=== PATIENT | female | born 1945 | race Asian ===

== ENCOUNTER 2020-04-22 15:55 | Emergency (ER) | payer OTHER ==
[2020-04-22] MEDS ORDERED: ASPIRIN 81 MG CHEWABLE TABLETS PO ONE (15:56)
--- NOTE | 2020-04-22 15:59 | PDOC ---
Rapid Medical Evaluation Time Seen by Provider: 04/22/20 15:56 Medical Evaluation: 04/22/20 15:58 CC: lscp x 1 day, htn hx Exam:elevated bp, other vss, lcta Plan: cardiac w/u Discharge Disposition - Diagnosis Chest pain - Referrals - Patient Instructions - Post Discharge Activity
[2020-04-22 16:08] VITALS: TEMP 98.1; BMI 29.2
--- OUTSIDE RECORDS SUMMARY | 2020-04-22 16:21 | XMS ---
:1945 Author Organization [facility] Support Name Relationship Address Phone RE Unavailable Unavailable Unavailable BILL SON [address] [address] Re-disclosure Warning The records that you are about to access may contain information from federally- assisted alcohol or drug abuse programs. If such information is present, then the following federally mandated warning applies: This information has been disclosed to you from records protected by federal confidentiality rules (42 CFR part 2). The federal rules prohibit you from making any further disclosure of this information unless further disclosure is expressly permitted by the written consent of the person to whom it pertains or as otherwise permitted by 42 CFR part 2. A general authorization for the release of medical or other information is NOT sufficient for this purpose. The Federal rules restrict any use of the information to criminally investigate or prosecute any alcohol or drug abuse patient.The records that you are about to access may contain highly sensitive health information, the redisclosure of which is protected by Article 27-F of the [facility] Public Health law. If you continue you may haveaccess to information: Regarding HIV / AIDS; Provided by facilities licensed or operated by the [facility] Office of Mental Health; or Provided by the [facility] Office for People With Developmental Disabilities. If such information is present, then the following [facility] mandated warning applies: This information has been disclosed to you from confidential records which are protected by state law. State law prohibits you from making any further disclosure of this information without the specific written consent of the person to whom it pertains, or as otherwise permitted by law. Any unauthorized further disclosure in violation of state law may result in a fine or correction sentence or both. A general authorization for the release of medical or other information is NOT sufficient authorization for further disclosure. Insurance Providers Payer name Policy type Policy ID Covered Covered constitution party's Policy P [place] / Coverage constitution party ID relationship to [employer] type [place] MEDICA[place] [id number]
[2020-04-22] MEDS ORDERED: ASPIRIN 81 MG CHEWABLE TABLETS ONE (16:29)
[2020-04-22 17:14] LABS: BASO % 0.9 % (0-2.0); EOS % 2.4 % (0-4.5); HEMATOCRIT 38.9 % (32.4-45.2); HEMOGLOBIN 12.9 GM/dL (10.7-15.3); LYMPH % 31.8 % (8-40); MCH 32.2 pg (25.7-33.7); MCHC 33.1 g/dl (32.0-36.0); MEAN PLT VOLUME 7.9 fl (7.5-11.1); NEUT % 53.9 % (42.8-82.8); PLATELET COUNT 268 K/MM3 (134-434); RBC 4.01 M/mm3 (3.60-5.2); RDW 12.5 % (11.6-15.6); WHITE BLOOD COUNT 6.5 K/mm3 (4.0-10.0)
[2020-04-22 17:24] LABS: INR 0.98 (0.83-1.09); PROTHROMBIN TIME (PATIENT) 11.9 SEC (9.7-13.0)
--- NOTE | 2020-04-22 17:25 | PDOC ---
Documentation entered by Keeley Aranda SCRIBE, acting as scribe for Avelina Muñoz MD. Avelina Muñoz MD: This documentation has been prepared by the scribe, Keeley Aranda SCRIBE, under my direction and personally reviewed by me in its entirety. I confirm that the documentation accurately reflects all work, treatment, procedures, and medical decision making performed by me. Attending Attestation - Resident Resident Name: Emerald Lopez - ED Attending Attestation I have performed the following: I have examined & evaluated the patient, The case was reviewed & discussed with the resident, I agree w/resident's findings & plan, Exceptions are as noted - HPI HPI: 04/22/20 17:19 This 74 yo female has been experiencing muscle cramping for past 3 weeks. It involves her legs, torso and radiates into her jaw She DENIES any fever,chills,nausea,vomiting, bladder or bowel incontinence,extremity weakness 04/22/20 17:47 - Physicial Exam PE: 04/22/20 17:48 Petite Alert 74 yo female with 3 weeks of leg cramping, cramping into neck and jaw and chest 04/22/20 17:53 head ncat eyes femi eomi lungs cta b/l cvs [id number] abdomen nontender extremities no erythema, no deformities, 1+ edema neuro axox3,motor strength 5/5 b/l psych appropriate 04/22/20 18:04 - Medical Decision Making 04/22/20 18:20 she exhibits a tremor in her arms and some circumoral twitching intermittent for several weeks labs reviewed, no metabolic disturbances , no electrolyte abnormalities -discussed neurology referral with the patient and her son plan Neurology referral 04/22/20 18:53 04/22/20 19:01 Discharge - Discharge Information Problems reviewed: Yes Clinical Impression/Diagnosis: Chest pain, Tremor, Leg cramping Condition: Stable Disposition: HOME - Follow up/Referral Referrals: Willy Cárdenas MD [Staff Physician] - Victoriano Aguilera MD [Staff Physician] - Salma Tariq MD [Primary Care Provider] - Cathi Garcia MD [Staff Physician] - - Patient Discharge Instructions Additional Instructions: You were seen in the emergency department due to the symptoms you have been experiencing in your legs, your chest, and your jaw. We ordered lab work for you and did some imaging exams, which all showed no concerning signs. Since you are still experiencing the symptoms, we recommend that you see a neurologist within the next 48 hours - we will refer three neurologists for you: Dr. Garcia, Dr. Aguilera, and Dr. Cárdenas. If you continue to experience worsening of your symptoms, chest pain, shortness of breath, or any other concerning symptoms, please call 911 or refer to your nearest emergency department for immediate medical attention. It was a pleasure taking care of you. Print Language: NORTHERN IRISH - Post Discharge Activity
[2020-04-22 17:26] LABS: ACTIVATED PTT 31.9 SECONDS (25.2-36.5)
[2020-04-22 17:40] LABS: CHLORIDE 107 mmol/L (98-107); POTASSIUM 4.7 mmol/L (3.5-5.1); SODIUM 141 mmol/L (136-145)
[2020-04-22 17:42] LABS: CALCIUM 9.4 mg/dL (8.5-10.1)
[2020-04-22 17:44] LABS: ALBUMIN 4.1 g/dl (3.4-5.0); ANION GAP 6 MMOL/L (8-16); BLOOD UREA NITROGEN 15.5 mg/dL (7-18); CO2 28 mmol/L (21-32); GLUCOSE,RANDOM 108 mg/dL (74-106); MAGNESIUM 2.3 mg/dL (1.8-2.4)
[2020-04-22 17:46] LABS: CREATININE 1.2 mg/dL (0.55-1.3); SGOT/AST 15 U/L (15-37); SGPT/ALT 22 U/L (13-61)
[2020-04-22 17:47] LABS: BILIRUBIN,TOTAL 0.6 mg/dL (0.2-1)
[2020-04-22 17:49] LABS: ALK PHOS 118 U/L (45-117)
--- NOTE | 2020-04-22 18:33 | PDOC ---
History of Present Illness - General Chief Complaint: Chest Pain Stated Complaint: CHEST PAIN Time Seen by Provider: 04/22/20 15:56 - History of Present Illness Initial Comments: 74yo F with PMHx of HTN presents with 3 weeks of episodic left leg cramping with "electric pains" and one day of ascending pain including chest pain and jaw tremors. The leg pain started about 3 weeks ago, but yesterday she started experiencing associated chest pain and jaw tremors with jaw clenching. The painful episodes last for about 30-40 minutes, and patient feels tired and her temporomandibular joints hurt her her after these episodes. This has never happened before and patient feels that she is very strong and independent at baseline. Son was at bedside, is a physical therapist at [facility] outpatient clinic. Past History - Medical History Allergies/Adverse Reactions: Allergies Allergy/AdvReac Type Severity Reaction Status Date / Time No Known Allergies Allergy Verified 04/22/20 16:03 Home Medications: Ambulatory Orders Amlodipine Besylate [Norvasc -] 5 mg PO DAILY 04/22/20 Losartan Potassium [Cozaar -] 50 mg PO DAILY 04/22/20 - Psycho-Social/Smoking History Smoking History: Never smoked Have you smoked in the past 12 months: No - Substance Abuse Hx (Audit-C & DAST Scrn) How often the patient has a drink containing alcohol: Never Score: In Men: 4 or > Positive; In Women: 3 or > Positive: 0 Screen Result (Pos requires Nsg. Audit-10AR): Negative In the last yr the pt used illegal drug/Rx for NonMed reason: No Score: Yes response is considered Positive: 0 Screen Result (Positive result requires Nsg. DAST-10): Negative Review of Systems - Review of Systems Comments:: Constitutional: denied fevers, chills, diaphoresis, changes in appetite/PO intake, weight gain/loss HEENTM: denied headaches, changes in vision/hearing/tasting/smelling, runny nose, sore throat, neck pain, difficulty swallowing Respiratory: denied SOB, CP, dry/productive cough, congestion Cardiac: denied palpitations, dizziness, syncope, irregular heartbeat, chest tightness Abdomen/GI: denied pain, NVDC : denied dysuria, urinary frequency/urgency MSK: denied back pain, joint pain/swelling/stiffness Integumentary: denied bruising, dryness, pruritis, rash Neurological: denied numbness, tingling, dizziness, weakness, seizures Psychiatric: denied anxiety, depression, mood changes *Physical Exam - Vital Signs Last Vital Signs Temp Pulse Resp BP Pulse Ox 98.1 F 87 16 182/74 H 98 04/22/20 15:55 04/22/20 15:55 04/22/20 15:55 04/22/20 15:55 04/22/20 15:55 - Physical Exam GENERAL: F, appears stated age, average body habitus, AAOx4 showing mild signs of distressdue to worries about her symptoms HEAD: Normal with no signs of trauma, good dentition EYES: PERRL, direct and consensual pupillary reflexes intact bilaterally, extraocular movements intact bilaterally EARS, NOSE, THROAT: Moist mucous membranes. NECK: No lymphadenopathy or masses LUNGS: CTAB. No wheezes, and no crackles. No accessory muscle use HEART: RRR, normal S1 and S2 without murmur ABDOMEN: Soft, nontender, not protuberant, normoactive bowel sounds EXTREMITIES: 2+ radial and dorsalis pedis pulses, warm to touch bilaterally, nontender to palpation, no peripheral edema appreciated, no active lesions or ulcers noted on feet bilaterally including interdigital web spaces NEUROLOGICAL: Cranial nerves II-XII grossly intact. Normal speech with symmetricalfacial movements. Sensation intact bilaterally. Normal gait. Mild tremor in upper extremities and face noticed. Strength and sensation intact in all extremities PSYCHIATRIC: Cooperative and interactive, responds appropriately. Good eye contact. Appropriate/good mood and affect ED Treatment Course - LABORATORY CBC & Chemistry Diagram: 04/22/20 16:55 04/22/20 16:55 - ADDITIONAL ORDERS Additional order review: Laboratory Results 04/22/20 04/22/20 16:55 16:55 PT with INR 11.90 INR 0.98 PTT (Actin FS) 31.9 Sodium 141 Potassium 4.7 Chloride 107 Carbon Dioxide 28 Anion Gap 6 L BUN 15.5 Creatinine 1.2 Est GFR (CKD-EPI)AfAm 50.84 Est GFR (CKD-EPI)NonAf 43.86 Random Glucose 108 H Calcium 9.4 Magnesium 2.3 Total Bilirubin 0.6 AST 15 ALT 22 Alkaline Phosphatase 118 H Creatine Kinase 105 Troponin I < 0.02 Total Protein 8.0 Albumin 4.1 11/02/20 16:55 RBC 4.01 MCV 97.0 H MCHC 33.1 RDW 12.5 MPV 7.9 Neutrophils % 53.9 Lymphocytes % 31.8 Monocytes % 11.0 H Eosinophils % 2.4 Basophils % 0.9 - Medications Given in the ED: ED Medications Discontinued Medications Generic Name Dose Route Start Last Admin Trade Name Sanaz PRN Reason Stop Dose Admin Aspirin 162 mg 04/22/20 15:56 04/22/20 17:17 Asa - PO 04/22/20 15:57 162 mg ONCE ONE Administration Medical Decision Making - Medical Decision Making 74yo F with PMHx of HTN presents with 3 weeks of episodic left leg cramping with "electric pains" and one day of ascending pain including chest pain and jaw tremors. - EKG - CXR - CBC - CMP - Mg - PT/PTT - ASA > labs are unremarkable > patient may benefit of outpatient neurology follow up for possible dystonic tremors > spoke to son at bedside (he is a physical therapist with [facility] - outpatient) > patient stable for d/c home Discharge - Discharge Information Problems reviewed: Yes Clinical Impression/Diagnosis: Chest pain, Tremor, Leg cramping Condition: Stable Disposition: HOME - Admission No - Follow up/Referral Referrals: Salma Tariq MD [Primary Care Provider] - Cathi Garcia MD [Staff Physician] - Victoriano Aguilera MD [Staff Physician] - Willy Cárdenas MD [Staff Physician] - - Patient Discharge Instructions Additional Instructions: You were seen in the emergency department due to the symptoms you have been experiencing in your legs, your chest, and your jaw. We ordered lab work for you and did some imaging exams, which all showed no concerning signs. Since you are still experiencing the symptoms, we recommend that you see a neurologist within the next 48 hours - we will refer three neurologists for you: Dr. Garcia, Dr. Aguilera, and Dr. Cárdenas. If you continue to experience worsening of your symptoms, chest pain, shortness of breath, or any other concerning symptoms, please call 911 or refer to your nearest emergency department for immediate medical attention. It was a pleasure taking care of you. Print Language: TELUGU - Post Discharge Activity
[2020-04-22 19:33] VITALS: BP 147/60; PULSE 76
--- NOTE | 2020-04-23 10:23 | EKG ---
Test Reason : Blood Pressure : / mmHG Vent. Rate : 089 BPM Atrial Rate : 089 BPM P-R Int : 164 ms QRS Dur : 082 ms QT Int : 338 ms P-R-T Axes : 068 031 076 degrees QTc Int : 411 ms NORMAL SINUS RHYTHM POSSIBLE LEFT ATRIAL ENLARGEMENT BORDERLINE ECG NO PREVIOUS ECGS AVAILABLE Confirmed by MD URSULA, TRISHA ([id number]) on 04/23/2020 10:22:47 AM Referred By: Confirmed By:TRISHA VERGARA MD
== END 2020-04-22 19:33 | disposition home or self-care (01) ==
LOC: JER 15:55
DX: R07.9 Chest pain, unspecified (principal); R25.1 Tremor, unspecified; R25.2 Cramp and spasm
CPT/HCPCS: 36415; 71045-TC-FY; 80053; 82550; 83735; 84484; 85025; 85610; 85730; 93005; 93010; 99285-25